=== PATIENT | male | born 1980 | race Caucasian/White ===

== ENCOUNTER 2016-07-04 20:07 | Emergency (ER) | payer MEDICAID ==
[~2016-07-04] VITALS: Ht 172.7 cm; Wt 74.8 kg
[2016-07-04] MEDS ORDERED: SODIUM CHLORIDE FLUSH 10ML SYR IVF ONE ×2 (20:30→21:30)
[2016-07-04 20:46] LABS: HEMOGLOBIN 14.8 g/dL (13.7-18.0)
[2016-07-04 20:48] LABS: BLOOD UREA NITROGEN 17 mg/dL (7-18)
[2016-07-04 20:52] LABS: ASPARTATE AMINO TRANSFERASE 29 U/L (15-37)
[2016-07-04] MEDS ORDERED: OMNIPAQUE 350 MG/ML, 100ML BOTTLE ONE (21:25)
[2016-07-04] MEDS ORDERED: SODIUM CHLORIDE 0.9% 1,000ML IVBOLUS ONE (21:30)
[2016-07-04] MEDS ORDERED: ONDANSETRON 2MG/ML, 2ML IVPush ONE (21:30)
[2016-07-04] MEDS ORDERED: ONDANSETRON 2MG/ML, 2ML ONE (21:43)
[2016-07-04] MEDS ORDERED: HYDROmorphone 1 MG/ML, 1ML ONE (21:43)
[2016-07-04] MEDS: HYDROmorphone 1 MG/ML, 1ML IVPush PRN (21:59)
[2016-07-05] MEDS ORDERED: HYDROmorphone 1 MG/ML, 1ML ONE (00:24)
[2016-07-05] MEDS: HYDROmorphone 1 MG/ML, 1ML IVPush PRN (00:29)
[2016-07-05 00:31] VITALS: BP 121/78
== END 2016-07-05 01:00 | disposition home or self-care (01) ==
LOC: ED 23:17
DX: K50.10 Crohn's disease of large intestine without complications (principal); R19.7 Diarrhea, unspecified; R10.84 Generalized abdominal pain; R11.2 Nausea with vomiting, unspecified
CPT/HCPCS: 36415; 74177; 80053; 81003; 83605; 83690; 85025; 96361; 96374; 96375; 96376; 99285; J1170; J2405; J7030; Q9967